=== PATIENT | female | born 1990 | race Caucasian/White ===

== ENCOUNTER 2016-07-27 01:04 | Emergency (ER) | payer BC ==
[~2016-07-27] VITALS: Ht 152.4 cm; Wt 48.1 kg
[~2016-07-27 01:04] MED LIST: CIPR-280 PO; HYDR-3989 PO; LORA-641 PO; PHEN-779 PO
[2016-07-27 01:10] VITALS: TEMP 97.6; Ht 152.4 cm; Wt 48.1 kg
[2016-07-27] MEDS ORDERED: PREN1TAB50 PO (01:54)
--- NOTE | 2016-07-27 02:00 | NUR ---
BR PT AMBULATES TO TOILET IN ROOM AND VOIDS, URINE SAMPLE IS COLLECTED FOR LAB TESTING.
--- NOTE | 2016-07-27 02:03 | ERPDOC ---
Departure Disposition Decision Date: Jul 27, 2016 Disposition Decision Time: 03:05 Disposition: 01 DISCHARGED HOME, SELF-CARE Impression Impression Impression: Primary Impression: UTI in Trimester: second trimester Qualified Codes: O23.42 - Unspecified infection of urinary tract in , second trimester Additional Impression: Uterine cramping Severity: Moderate Condition: Improved Seen By: Physician only Referrals: LEONARDO LEA DO (Family) ZOE SALEEM MD 3 Days Patient Instructions: Abdominal Pain in (ED) Problems/Meds/Labs Reviewed?: Yes Medications reviewed and manag: Yes Additional Instructions: We did not find a serious cause of your symptoms tonight. Your urine shows the hint of an infection. We have treated it tonight. Follow up with your OB on Friday. If you develop any concerning signs or symptoms, follow up immediately. Follow up care ordered?: Yes Mental Status: Alert, Oriented HPI - Female General Chief Complaint: Related Problems Stated Complaint: CRAMPING AT 19 WEEKS Time Seen by Provider: 01:52 Source: patient Exam Limitations: no limitations HPI - Female Initial Comments 26yo at 19wks gestation presents to the ER for uterine cramps. Cramps have been continuous since 1900 yesterday. Pt spoke with OB, who recommended several interventions that have all been unhelpful. Pt has had no bleeding or discharge ; cramping is all along pts lower uterine segment. Pt presented to the ER to ' check out the baby'. Occurred At: home Onset: Rapid, Constant Duration: 6-12 hrs Pain Scale: Now & Worst: 4/10 Severity/Quality: cramping Location: other Radiation: none Activities at Onset: none Prior Genitourinary Problems: none Associated Symptoms: denies symptoms Hx of Similar Symptoms: No Is Pt now?: Yes Hx Last Menstrual Period: 02/2016 Expected Date of Delivery: Dec 15, 2016 : 1 Para: 0 Number of Living Children: 0 Abortions (Spont. & Elec.): 0 Allergies: Coded Allergies: No Known Allergies (Unverified , 07/28/15) Past History Past Medical History Female: UTI Surgical History Denies Surgeries Vaccines Hx Influenza Vaccination: Yes (2011) Hx Pneumococcal Vaccination: No Review of Systems General: DENIES: burning, dysuria, frequency, pain, urgency : cramps All other Systems All Other Systems: Reviewed and Negative Physical Exam General General Nourishment: well nourished, well developed, appears stated age, no acute distress, adult, thin General Body Habitus: well groomed Vitals and Pain First Documented Vital Signs Date Time Temp Pulse Resp B/P Pulse Ox O2 Delivery O2 Flow Rate FiO2 07/27/16 01:10 97.6 80 18 107/65 100 Room Air Weight: Kilograms: 48.100 Height (feet): 5 Height (inches): 0 Triage Pain Scale: RN VS reviewed by Provider: Yes Normal Exams: Head: Normocephalic w/o trauma Eyes: Pupils are PERRLA w/ EOMI, No scleral icterus, irritation ENMT: No facial trauma, nasal exudates, pharyngeal erythema Neck: Full range of motion, without adenopathy, JVD Lymphatic: No lymphadenopathy Musculoskeletal: No tenderness, or deformity noted Integumentary: No rashes, hives, or bruising noted Neurologic: Patient is alert, and oriented Psychiatric: Patient exhibits, appropriate attention Respiratory (brief) Respiratory: FOUND: clear all hdez, equal bilaterally, symmetrical, NOT FOUND : rales, wheezes Cardiovascular (brief) Cardiac: FOUND: regular rate, regular rhythm, NOT FOUND: click, gallop, murmur , pedal edema, peripheral edema, rub Capillary Refill: <2 sec Pulses: all distal extremities, equal, strong Abdomen (brief) Abdominal Brief: FOUND: bowel normo active x4, soft, NOT FOUND: distended, hepatosplenomegaly, pulsatile mass, tender Comments Gravid uterus; fundus at umbilicus Differential Diagnoses Considering: Constipation/Obstipation, Pyelonephritis, Renal Colic, UTI Progress Results/Orders Orders Procedure Category Date Status Time Heart Tones (Ed) EDM 07/27/16 Transmitted 01:52 Ua, Dip Wreflex LAB 07/27/16 Complete Microsc & Counter Hop 01:52 Hemagram - Cbc No Diff LAB 07/27/16 Complete Bmp - Basic Metabolic LAB 07/27/16 Complete Panel Urine Culture REBECCA 07/27/16 Complete 02:33 Fosfomycin PHA 07/27/16 Complete Tromethamine (Monurol) 02:45 Lab Results Laboratory Tests Test 07/27/16 02:04 07/27/16 02:10 Urine Collection Type Cleancatch-midstream Urine Color Yellow Urine Turbidity Clear Urine pH 6.0 Urine Specific [place] 1.020 Urine Protein Negative Urine Glucose (UA) Negative Urine Ketones Negative Urine Blood Negative Urine Nitrite Negative Urine Bilirubin Negative Urine Urobilinogen 0.2EU/DL Urine Leukocyte Esterase Trace Urinalysis Comment Microscopic not ind. White Blood Count 9.8T/MM3 Red Blood Count 3.49M/MM3 Hemoglobin 10.8GM/DL Hematocrit 31.9% Mean Corpuscular Volume 91.4UM3 Mean Corpuscular Hemoglobin 30.9UUG Mean Corpuscular Hemoglobin Concent 33.9GM/DL RDW Standard Deviation 41.1FL Platelet Count 291T/MM3 Mean Platelet Volume 9.5UM3 Turbidity < 20 Sodium Level 142MEQ/L Potassium Level 3.6MEQ/L Chloride Level 109MEQ/L Carbon Dioxide Level 25MEQ/L Anion Gap 8MEQ/L Blood Urea Nitrogen 8.0MG/DL Creatinine 0.6MG/DL Glomerular Filtration Rate Calc 123 BUN/Creatinine Ratio 13RATIO Glucose Level 94MG/DL Calculated Osmolality 271MOSM/KG Calcium Level 9.2MG/DL Icterus Index < 2 Chemistry Specimen Hemolysis < 15 Medications Current ED Medications Fosfomycin Tromethamine (Monurol) 3 g O ONCE PO Last administered on 07/27/16t 03:21; Start 07/27/16 at 02:45; Stop 07/27/16 at 02:47; Status DC Progress Progress No obvious cause of pts sx on hx, PE, or labs. In the absence of other symptoms , and with LE in urine, will treat as for UTI. Discussed dx, prognosis, and tx with pt, who voiced understanding. Gave excellent precautions for RTC. F/u with OB on Friday. ZEN JEFFRIES DO Jul 27, 2016 02:03 ZEN JEFFRIES DO Jul 27, 2016 02:03
--- NOTE | 2016-07-27 02:04 | NUR ---
PROVIDER DR JEFFRIES IN ROOM.
[2016-07-27 02:09] LABS: BLOOD, URINE NEGATIVE (NEGATIVE); COLOR,URINE YELLOW (YELLOW); LEUKOCYTE ESTERASE ,URINE TRACE (NEGATIVE); NITRITE,URINE NEGATIVE (NEGATIVE); UROBILINOGEN,URINE 0.2 EU/DL (NORMAL)
--- NOTE | 2016-07-27 02:09 | NUR ---
LAB PRESENT IN ROOM TO OBTAIN BLOOD SAMPLE AT THIS TIME.
[2016-07-27 02:18] LABS: HCT - HEMATOCRIT 31.9 % (36-46); HGB - HEMOGLOBIN 10.8 GM/DL (12-16); MEAN CORPUSCULAR HGB 30.9 UUG (26-34); MEAN CORPUSCULAR HGB CONC(MCHC 33.9 GM/DL (31-37); MEAN CORPUSCULAR VOLUME 91.4 UM3 (80-100); MEAN PLATELET VOLUME 9.5 UM3 (9.4-12.4); RED BLOOD COUNT 3.49 M/MM3 (4.00-5.20); WBC - WHITE BLOOD COUNT 9.8 T/MM3 (4.5-11.0)
[2016-07-27 02:28] LABS: ANION GAP 8 MEQ/L (5-15); BUN/CREATININE RATIO 13 RATIO (6-26); CALCIUM 9.2 MG/DL (8.4-10.2); CHLORIDE 109 MEQ/L (98-107); CO2 - CARBON DIOXIDE 25 MEQ/L (22-30); CREATININE 0.6 MG/DL (0.7-1.2); GLOMERULAR FILTRATION RATE 123; GLUCOSE 94 MG/DL (65-110); POTASSIUM 3.6 MEQ/L (3.6-5); SODIUM 142 MEQ/L (134-144)
[2016-07-27] MEDS ORDERED: FOSFOMYCIN 3 GRAM PACKET PO ONE (02:45)
--- NOTE | 2016-07-27 02:59 | NUR ---
PROVIDER MAY IN ROOM TO DISCUSS TREATMENT PLAN WITH PT.
[2016-07-27 03:23] VITALS: BP 92/55; PULSE 85; RESP 16; O2SAT 99
--- NOTE | 2016-07-27 03:23 | NUR ---
DEPART PT IS DISCHARGED AT THIS TIME, INSTRUCTIONS ARE REVIEWED AND UNDERSTANDING IS VOICED. PT LEAVES AMBULATORY WITH HER SPOUSE.
== END 2016-07-27 03:23 | disposition home or self-care (01) ==
LOC: ED 01:04
DX: O23.42 Unspecified infection of urinary tract in pregnancy, second trimester (principal); N94.89 Other specified conditions associated with female genital organs and menstrual cycle; Z3A.19 19 weeks gestation of pregnancy
CPT/HCPCS: 80048; 81003; 85027; 87077; 87086; 87186

== ENCOUNTER 2016-12-05 02:24 | Inpatient (IN) ==
[2016-12-05] MEDS ORDERED: ACETAMINOPHEN 500 MG TABLET PO PRN (06:05)
[2016-12-05] MEDS ORDERED: LIDOCAINE 1% (10mg/ml) 2mL INJ PF SDV ID PRN (06:05)
[2016-12-05] MEDS ORDERED: MAG-AL + SIM ORAL LIQUID 30ml PO PRN (06:05)
[2016-12-05] MEDS ORDERED: CALCIUM CARBONATE Chewable 500mg TABLET PO PRN (06:05)
[2016-12-05] MEDS ORDERED: METHYLERGONOVINE 0.2 MG/ML INJECTION IM PRN (06:05)
[2016-12-05] MEDS ORDERED: CARBOPROST 250 MCG/ML INJECTION IM PRN (06:05)
[2016-12-05] MEDS: LR 1,000 ML IV PRN ×2 (06:30→09:03)
[2016-12-05 06:45] VITALS: RESP 16; BMI 28.9
[2016-12-05] MEDS ORDERED: AMPICILLIN 2 GM in NS 100 ML IV ONE (06:45)
[2016-12-05] MEDS ORDERED: OXYTOCIN DRIP 30 UNIT/500 ML ML IV PRN (06:57)
[2016-12-05] MEDS ORDERED: D5LR 1,000 ML IV PRN (06:57)
--- NOTE | 2016-12-05 08:20 | Anesthesia Preoperative Report ---
Anesthesia Epidural/Spinal Rec - Date and Time Date: 12/05/16 (38 4/7 weeks) Procedure: Labor Epidural Plan: Epidural - Vital Signs Vital Signs: Temperature 97.8 F 12/05/16 06:40 Pulse Rate 85 12/05/16 06:40 Respiratory Rate 16 12/05/16 06:40 Blood Pressure 139/75 12/05/16 06:40 Pulse Oximetry 99 12/05/16 06:40 Oxygen Delivery Method Room Air /Para: P:0 - Medictaions & Allergies Inpatient Medications: Current Medications Acetaminophen (Tylenol) 500 - 1,000 mg PO Q4H PRN PRN Reason: Pain Al Hydroxide/Mg Hydroxide (Maalox Plus) 30 ml PO Q3H PRN PRN Reason: Indigestion Calcium Carbonate (Tums) 500 - 1,000 mg PO Q2H PRN PRN Reason: Indigestion Carboprost Tromethamine (Hemabate) 250 mcg IM O PRN PRN Reason: .Downtime Ampicillin Sodium 1 gm/ Sodium (Chloride) 100 mls @ 200 mls/hr IV Q4H QUINCY Lactated Ringer's (Lactated Ringers) 1,000 mls @ 1,000 mls/hr IV .Q1H PRN PRN Reason: as directed Last Admin: 12/05/16 06:30 Dose: 1,000 mls/hr Dextrose/Lactated Ringer's (Dextrose 5%-Lactated Ringers) 1,000 mls @ 125 mls/ hr IV .Q8H PRN PRN Reason: Labor Last Admin: 12/05/16 07:01 Dose: 125 mls/hr Oxytocin (Pitocin Drip) 30 unit in 500 mls @ 2 mls/hr IV .Q24H PRN; Protocol PRN Reason: Induction/Augmentation Last Admin: 12/05/16 07:00 Dose: 2 mls/hr Lidocaine HCl (Xylocaine-Mpf 1% Vial) 0.2 mg ID O PRN PRN Reason: IV Start Methylergonovine Maleate (Methergine) 0.2 mg IM O PRN Misoprostol (Cytotec) 800 mcg MN ONCE PRN Allergies/Adverse Reactions: Allergies Allergy/AdvReac Type Severity Reaction Status Date / Time No Known Allergies Allergy Verified 12/05/16 06:36 - Home Medications Home Medications: Home Medications Medication Instructions Recorded Confirmed Type Vit/Iron Fumarate/FA 1 tab PO DAILY #0 tab 07/27/16 12/05/16 History [ Vitamin Formula Tb] Iron 1 tab PO DAILY 11/26/16 12/05/16 History - Surgical History Hx Family Anesthesia Reaction: No History of Motion Sickness: No - Social History Second Hand Exposure: No Substance Use Type: does not use Alcohol Intake Frequency: does not drink - Pertinent Findings Lab Data: CBC and BMP 12/05/16 06:29 - Physical Exam Respiratory Exam: lungs clear Cardiovascular Exam: regular rate and rhythm - Airway Assessment Mallampati Score: I TMD: 3 Fingerbreadths Neck Extension: good Overall Assessment: no airway concerns - ASA ASA Score: 2 - Discussion Discussion: Discussed risks/options/alternatives of anesthesia and questions answered. Patient consents. Nursing pain assessment noted. Anesthesia Discussion: family member Attestation Statement: Prior to the delivery of any anesthetic medication, I examined the patient, developed the plan, obtained the patient's consent and discussed the risk and benefits of the procedure with the patient/guardian.
[2016-12-05] MEDS ORDERED: ROPIVACAINE 1% 10MG/ML INJ 200 MG, SUFentanil 50 MCG in NS 100 ML EPI PRN (09:20)
[2016-12-05] MEDS ORDERED: NALOXONE 0.4 MG/ML INJECTION IVP PRN (09:20)
[2016-12-05] MEDS ORDERED: DiphenhydrAMINE 50 MG/ML INJECTION IVP PRN (09:20)
[2016-12-05] MEDS ORDERED: ONDANSETRON 4 MG/2 ML INJECTION IVP PRN (09:20)
[2016-12-05] MEDS ORDERED: LIDOCAINE 2%/EPI 1:200,000 20ml SDV PF ONE (09:30)
[2016-12-05] MEDS ORDERED: AMPICILLIN 1 GM in NS 100 ML IV SCH (10:30)
[2016-12-05] MEDS ORDERED: DiphenhydrAMINE 25 MG CAPSULE PO PRN (13:54)
[2016-12-05] MEDS ORDERED: SALINE FLUSH 10ml SYRINGE IVF PRN (13:54)
[2016-12-05] MEDS ORDERED: OXYTOCIN DRIP 30 UNIT/500 ML ML IV SCH (13:54)
[2016-12-05] MEDS ORDERED: HYDROCORTISONE 2.5% CREAM 30gm RECTALLY PRN (13:54)
--- NOTE | 2016-12-05 14:57 | Labor and Delivery Note ---
DATE OF DELIVERY 12/05/2016 DELIVERY NOTE Lyly is a 26-year-old, 2, para 0, at 38 weeks 4 days gestational age who presented to [facility] with complaints of vaginal bleeding after intercourse. On arrival she was also found to be cassidy and 4 cm dilated. In Observation her bleeding slowed down but her contractions picked up, so she was admitted in labor. Her cervix didn't change, so she was started on Pitocin augmentation. Her membranes were ruptured artificially, returning clear fluids. She received an epidural. She progressed steadily on through labor. She was allowed to labor down for an hour. She then pushed for a little over two hours. She had a spontaneous vaginal delivery in the PAUL position of a viable male infant, Apgars 9/10, weight 3627 g, name "Ata." There was a nuchal cord around the back of the neck that was delivered through. Baby was vigorous at delivery and placed on mom's abdomen. The cord clamping was delayed for more than 2 minutes. With gentle traction on the cord, it avulsed from the placenta, so the placenta had to be removed manually. The placenta appeared to be intact, but there appeared to be a velamentous insertion. She had a first-degree perineal laceration that was repaired with 2- 0 Vicryl. She had a left periurethral and right labial lacerations that were repaired with 2-0 chromic. Mom and baby tolerated the delivery well. [facility]ITALMercedes
[2016-12-05] MEDS: IBUPROFEN 800 MG TABLET PO PRN (16:26)
[2016-12-05] MEDS: HYDROCODONE/APAP 5mg/325mg TABLET PO PRN ×2 (18:39→23:31)
[2016-12-06] MEDS: IBUPROFEN 800 MG TABLET PO PRN ×3 (00:01→16:08)
--- NOTE | 2016-12-06 07:55 | OB/GYN Progress Note ---
OB-PP Progress Note - General PPD1 Maternal Group B Strep: Positive Maternal blood type: O- Maternal Rubella Status: Immune General: Baby O neg - Subjective Date: 12/06/16 Lochia: Minimal (o) Pain: contolled Voiding: voiding - Objective Vital Signs: Last Vital Signs Temp 97.7 F 12/06/16 07:40 Pulse 91 12/06/16 07:40 Resp 16 12/06/16 07:40 BP 105/58 12/06/16 07:40 Pulse Ox 98 12/06/16 00:01 Urine Output: good General: alert and oriented Abdomen: fundus firm, non-tender Extremities: non-tender Laboratory: Laboratory Results - last 24 hr 12/05/16 12/05/16 12/05/16 06:25 06:29 13:54 Glucometer 80 Antibody Screen Positive A* Antibody Identification Immune D RhIG Candidate? Not a candidate - Assessment Assessment: , GBS positive - Plan Plan: routine care Expected date of discharge: 12/07/16
[2016-12-06] MEDS ORDERED: DOCUSATE CALCIUM 240 MG CAPSULE PO SCH (09:00)
[2016-12-06] MEDS: HYDROCODONE/APAP 5mg/325mg TABLET PO PRN ×2 (13:33→23:10)
[2016-12-06 23:49] VITALS: TEMP 97.7; O2SAT 100
[2016-12-07] MEDS: IBUPROFEN 800 MG TABLET PO PRN (06:22)
[2016-12-07 06:33] VITALS: BP 114/67; PULSE 82
--- NOTE | 2016-12-07 12:03 | Discharge Instructions ---
Discharge Plan - Med Rec/Dispo Prescriptions: New Docusate Calcium [Surfak] 240 mg PO DAILY #30 capsule Hydrocodone/APAP 5/325 [Elbert 5/325] 1 - 2 tab PO Q4H PRN #20 tablet PRN Reason: Pain Ibuprofen [Motrin] 800 mg PO Q8H PRN #30 tablet PRN Reason: Pain No Action Iron 1 tab PO DAILY Vit/Iron Fumarate/FA [ Vitamin Formula Tb] 1 tab PO DAILY # 0 tab - Disposition 01 Discharged Home, Self-Care
== END 2016-12-07 13:10 | disposition home or self-care (01) | DRG 767 ==
LOC: OBOBS 02:24 → MC 02:25
PROVIDERS: ADMIT Obstetrics & Gynecology; ATTEND Obstetrics & Gynecology